=== PATIENT | male | born 1995 | race African-American/Black ===

== ENCOUNTER 2019-11-15 16:52 | Emergency (ER) | payer OTHER ==
[~2019-11-15] VITALS: Ht 175.3 cm; Wt 75.0 kg
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
[2019-11-15 19:01] VITALS: BP 117/64
== END 2019-11-15 19:03 | disposition home or self-care (01) ==
LOC: EDBD 16:52 → M ED 16:52
DX: S06.0X9A Concussion with loss of consciousness of unspecified duration, initial encounter (principal); V43.52XA Car driver injured in collision with other type car in traffic accident, initial encounter; Y92.9 Unspecified place or not applicable; Y93.9 Activity, unspecified; Y99.9 Unspecified external cause status